=== PATIENT | female | born 1970 | race Caucasian/White ===

== ENCOUNTER 2023-08-20 17:22 | Observation (INO) | payer MEDICARE, SELFPAY ==
[2023-08-20] VITALS (27 sets, daily range): BP systolic 116–159; BP diastolic 78–124; PULSE 100–118; RESP 12–26; TEMP 36.5–36.7; O2SAT 93–98; BMI 37.8; BMI 41.1
--- NOTE | 2023-08-20 17:33 | ECG_ITS ---
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
--- NOTE | 2023-08-20 17:33 | XR_ITS ---
The [address] [address] Patient Name: NEY GUTHRIE MRN: [id number] date: 1970 Sex: F Assigned Patient Location: ER Current Patient Location: ER Accession/Order Number: [id number] Exam Date: 08/20/2023 18:18 Report Date: 08/20/2023 18:59 At the request of: STUART LEDEZMA Procedure: XR chest 1V EXAMINATION: XR chest 1V 08/20/2023 3:58 PM PST HISTORY: shortness of breath TECHNIQUE: Single frontal view of the chest acquired. COMPARISONS: Chest x-ray 06/09/2015 FINDINGS: Lines/tubes/other: None. Heart and mediastinum: The heart and the mediastinum are within normal limits for technique. Bones: No acute osseous abnormality. Lungs: The lungs are clear. There is no evidence of pneumonia or pulmonary edema. Pleura: There is no significant pleural effusion or pneumothorax. Other: None. XR/XR chest 1V IMPRESSION: No acute cardiopulmonary abnormality. Electronically authenticated by: KRISTEN ESTRELLA Date: 08/20/2023 18:59
--- NOTE | 2023-08-20 17:37 | ED_ITS ---
HPI - SOB/Dyspnea General Chief Complaint: Shortness of Breath/Dyspnea Stated Complaint: Shortness of breath Time Seen by Provider: 08/20/23 17:28 Source: patient Mode of arrival: walk-in Limitations: no limitations History of Present Illness HPI Narrative: Patient brought by family to our ED from [place] for evaluation after 1 month of worsening shortness of breath. Patient states that she contracted Covid around July 21 and got steroids taper and Paxlovid. She finished those and was no better . She has been using her home nebs - atrovent and albuterol - along with her maintenance inhaler. She said that she did not see her PCP or go to any other providers until today when she went to the ER at [place]. She waited in the waiting room and decided it was taking too long so she came to see us. Fever to 102F at home. No vomiting but appetite has been decreased. PMHx - hypothyroidism, COPD and high cholesterol. 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 Related Data Home Medications Medication Instructions Recorded Confirmed alprazolam 0.25 mg tablet 0.25 mg PO PRN 08/20/23 08/20/23 amitriptyline 50 mg tablet 50 mg PO PRN 08/20/23 08/20/23 ipratropium 0.5 mg-albuterol 3 mg 3 ml inhalation Q6H PRN shortness 08/20/23 08/20/23 (2.5 mg base)/3 mL nebulization of breath or wheezing soln levothyroxine 100 mcg tablet 100 mcg PO DAILY 08/20/23 08/20/23 pravastatin 20 mg tablet 20 mg PO DAILY 08/20/23 08/20/23 ropinirole 0.5 mg tablet 0.5 mg PO DAILY 08/20/23 08/20/23 Allergies Allergy/AdvReac Type Severity Reaction Status Date / Time No Known Drug Allergies Allergy Verified 08/20/23 17:26 [facility] Social History Smoking status: Current every day smoker Exam Narrative Exam Narrative: Nurses notes and vital signs reviewed and patient is not hypoxic. afebrile General: tachypneic. Skin: Warm, dry, no pallor noted. No rash. Head: Normocephalic, atraumatic. Eye: Pupils are equal, round and EOMI. No scleral icterus. Ears, Nose, Mouth, and Throat: Oral mucosa is moist Cardiovascular: Tachycardia. Respiratory: Accessory muscle use, tachypnea. Decreased air exchange. Expiratory wheezing and scattered rhonchi Musculoskeletal: normal ROM, no calf or popliteal tenderness, no lower extremity edema/swelling GI: Abdomen is soft, non-distended. Normal bowel sounds. No tenderness to palpation. No rebound, guarding, or rigidity noted. Neurological: A&O x4. No cranial nerve dysfunction observed. No truncal ataxia. Moves all extremities. Sensation intact. Psychiatric: Cooperative and interactive. Normal mood and affect. Constitutional Vital Signs, click to edit/add: Last Vital Signs Temp 97.7 F 08/20/23 17:26 Pulse 109 H 08/20/23 18:40 Resp 22 08/20/23 18:40 BP 120/90 08/20/23 18:30 Pulse Ox 96 08/20/23 18:40 O2 Del Method Room Air 08/20/23 17:26 Course Vital Signs Vital signs: Vital Signs Temperature 97.7 F 08/20/23 17:26 Pulse Rate 117 H 08/20/23 17:26 Respiratory Rate 26 H 08/20/23 17:26 Blood Pressure 116/82 08/20/23 17:26 Pulse Oximetry 96 08/20/23 17:26 Oxygen Delivery Method Room Air 08/20/23 17:26 Temperature 97.7 F 08/20/23 17:26 Pulse Rate 109 H 08/20/23 18:40 Respiratory Rate 22 08/20/23 18:40 Blood Pressure 120/90 08/20/23 18:30 Pulse Oximetry 96 08/20/23 18:40 Oxygen Delivery Method Room Air 08/20/23 17:26 MDM - SOB/Dyspnea MDM Narrative Medical decision making narrative: Patient was placed on quality assurance monitor final and EKG obtained. Blood drawn and sent for evaluation, including lactate, procalcitonin and blood cultures. Respiratory panel and portable CXR obtained. She was ordered to receive IV Solumedrol and an albuterol neb treatment - she had a duoneb at home around 330pm. CXR negative. WBC normal. Lactate elevated. Procalcitonin pending. CMP unremarkable. d dimer negative. She was given IV Levaquin and blood cultures are pending Plan is for patient to be admitted, medsurg, observation with telemetry. Signed out to Dr Pizarro to discuss with hospitalist. Lab Data Attestation: I reviewed the patient's lab results. Labs: Lab Results 08/20/23 Range/Units 17:58 WBC 10.3 (4.0-11.0) 10^3/uL RBC 4.52 (4.20-5.40) 10^6/uL Hgb 14.1 (12.0-16.0) g/dL Hct 43.6 (36.0-48.0) % MCV 96.5 (81.0-99.0) fL MCH 31.2 (26.7-34.0) pg MCHC 32.3 (29.9-35.2) g/dL RDW 14.5 (11.0-15.0) % Plt Count 245 (150-450) 10^3/uL MPV 10.3 (9.5-13.5) fL Neut % (Auto) 71.0 (43.0-75.0) % Lymph % (Auto) 19.4 L (20.5-60.0) % [place] % (Auto) 6.1 (1.7-12.0) % Eos % (Auto) 1.6 (0.9-7.0) % Baso % (Auto) 0.6 (0.2-2.0) % Neut # (Auto) 7.3 H (1.4-6.5) 10^3/uL Lymph # (Auto) 2.0 (1.2-3.8) 10^3/uL [place] # (Auto) 0.6 (0.3-0.8) 10^3/uL Eos # (Auto) 0.2 (0.0-0.7) 10^3/uL Baso # (Auto) 0.1 (0.0-0.1) 10^3/uL Abs Immat Gran (auto) 0.13 H (0.00-0.03) 10^3/uL Imm/Tot Granulo (auto) 1.3 H (0.0-0.5) % D-Dimer 0.32 (<=0.59) mg/L FEU Sodium 137 (136-145) mmol/L Potassium 3.8 (3.5-5.1) mmol/L Chloride 102 (98-107) mmol/L Carbon Dioxide 25.5 (21.0-32.0) mmol/L Anion Gap 13.3 BUN 13.0 (7.0-18.0) mg/dL Creatinine 0.93 (0.55-1.02) mg/dL Est GFR ( Amer) >60 (>=60) Est GFR (Non-Af Amer) >60 (>=60) BUN/Creatinine Ratio 14.0 Glucose 179 H (74-106) mg/dL Lactate 2.3 H* (0.4-2.0) mmol/L Calcium 8.9 (8.5-10.1) mg/dL Total Bilirubin 0.3 (0.2-1.0) mg/dL AST 15 (15-37) U/L ALT 49 (14-59) U/L Alkaline Phosphatase 88 (46-116) U/L Total Protein 7.4 (6.4-8.2) g/dL Albumin 3.7 (3.4-5.0) g/dL Globulin 3.7 g/dL Albumin/Globulin Ratio 1.0 Imaging Data Chest x-ray: Radiologist's impression: ITS Impressions Chest X-Ray 08/20/23 17:33 IMPRESSION: No acute cardiopulmonary abnormality. Electronically authenticated by: KRISTEN ESTRELLA Date: 08/20/2023 18:59 ECG Data Attestation: I personally reviewed and interpreted this ECG as follows: Interpretation: EKG interpretation: Emergency Department physician interpretation. Sinus tachycardia at 117bpm. Normal axis, normal intervals, non specific T wave changes, no ST segment elevation or depression. Discharge Plan Discharge Chief Complaint: Shortness of Breath/Dyspnea Clinical Impression: Acute infective exacerbation of chronic obstructive airway disease Patient Disposition: Admitted as Observation Time of Disposition Decision: 17:47
[2023-08-20] MEDS: ALBUTEROL SULFATE 2.5 MG/3 ML VIAL NEB IH (17:52)
[2023-08-20] MEDS: 0.9 % SODIUM CHLORIDE 1,000 ML 999 ML IV (17:59)
[2023-08-20] MEDS: METHYLPREDNISOLONE SOD SUCC PF 125 MG/2 ML VIAL IVP (18:00)
[2023-08-20 18:06] LABS: Adenovirus NOT DETECTED (NOT DETECTE); Bordetella parapertussis NOT DETECTED (NOT DETECTE); Coronavirus 229E NOT DETECTED (NOT DETECTE); Coronavirus HKU1 NOT DETECTED (NOT DETECTE); Coronavirus NL63 NOT DETECTED (NOT DETECTE); Coronavirus OC43 NOT DETECTED (NOT DETECTE); Human Metapneumovirus NOT DETECTED (NOT DETECTE); Human Rhinovirus/Enterovirus NOT DETECTED (NOT DETECTE); Influenza A NOT DETECTED (NOT DETECTE); Influenza B NOT DETECTED (NOT DETECTE); Mycoplasma pneumoniae NOT DETECTED (NOT DETECTE); Parainfluenza Virus 1 NOT DETECTED (NOT DETECTE); Parainfluenza Virus 2 NOT DETECTED (NOT DETECTE); Parainfluenza Virus 3 NOT DETECTED (NOT DETECTE); Parainfluenza Virus 4 NOT DETECTED (NOT DETECTE); Respiratory Syncytial Virus NOT DETECTED (NOT DETECTE)
[2023-08-20 18:14] LABS: Basophils Absolute Auto 0.1 10^3/uL (0.0-0.1); Basophils Percent Auto 0.6 % (0.2-2.0); Eosinophils Absolute Auto 0.2 10^3/uL (0.0-0.7); Eosinophils Percent Auto 1.6 % (0.9-7.0); Hematocrit 43.6 % (36.0-48.0); Hemoglobin 14.1 g/dL (12.0-16.0); Immature Granulocytes Abs Auto 0.13 10^3/uL (0.00-0.03); Immature Granulocytes Pct Auto 1.3 % (0.0-0.5); Lymphocytes Percent Auto 19.4 % (20.5-60.0); Mean Corpuscular HGB Conc 32.3 g/dL (29.9-35.2); Mean Corpuscular Hemoglobin 31.2 pg (26.7-34.0); Mean Corpuscular Volume 96.5 fL (81.0-99.0); Mean Platelet Volume 10.3 fL (9.5-13.5); Monocytes Absolute Auto 0.6 10^3/uL (0.3-0.8); Monocytes Percent Auto 6.1 % (1.7-12.0); Neutrophils Absolute Auto 7.3 10^3/uL (1.4-6.5); Platelet Count 245 10^3/uL (150-450); Red Blood Count 4.52 10^6/uL (4.20-5.40); Red Cell Distribution Width 14.5 % (11.0-15.0); White Blood Count 10.3 10^3/uL (4.0-11.0)
[2023-08-20 18:32] LABS: Lactate/Lactic Acid 2.3 mmol/L (0.4-2.0)
[2023-08-20 18:37] LABS: D Dimer 0.32 mg/L FEU (<=0.59)
[2023-08-20 18:39] LABS: Alanine Aminotransferase 49 U/L (14-59); Albumin Level 3.7 g/dL (3.4-5.0); Alkaline Phosphatase 88 U/L (46-116); Anion Gap 13.3; Aspartate Amino Transferase 15 U/L (15-37); Bilirubin Total 0.3 mg/dL (0.2-1.0); Calcium 8.9 mg/dL (8.5-10.1); Carbon Dioxide 25.5 mmol/L (21.0-32.0); Chloride 102 mmol/L (98-107); Estimated GFR (African America >60 (>=60); Estimated GFR (Non-African Ame >60 (>=60); Globulin 3.7 g/dL; Glucose 179 mg/dL (74-106); Potassium 3.8 mmol/L (3.5-5.1); Sodium 137 mmol/L (136-145); Total Protein 7.4 g/dL (6.4-8.2)
[2023-08-20 19:10] LABS: PROCALCITONIN <0.05 ng/mL (0.00-0.50)
[2023-08-20 19:36] LABS: SARS-CoV-2 DETECTED (NOT DETECTE)
[2023-08-20] MEDS: LEVOFLOXACIN IN DEXTROSE 5 % 750 MG/150 ML IV.SOLN 100 MG IV (19:41)
[2023-08-20] MEDS: ALPRAZOLAM 0.5 MG TABLET PO (19:59)
[2023-08-20] MEDS: NICOTINE 14 MG PATCH.TD24 TD (20:30)
[2023-08-20] MEDS: 0.9 % SODIUM CHLORIDE 1,000 ML 100 ML IV (21:35)
[2023-08-20] MEDS: ENOXAPARIN SODIUM 40 MG/0.4 ML SYRINGE SUBQ (21:35)
[2023-08-20 21:54] LABS: Lactate/Lactic Acid 3.4 mmol/L (0.4-2.0)
[2023-08-20 22:39] LABS: Bilirubin Urine NEGATIVE (NEGATIVE); Blood Urine NEGATIVE (NEGATIVE); Clarity Urine CLEAR (CLEAR); Color Urine LT. YELLOW (YELLOW); Glucose Urine UA 250 mg/dL (NEGATIVE); Ketones Urine NEGATIVE (NEGATIVE); Leukocyte Esterase Urine NEGATIVE (NEGATIVE); Nitrite Urine NEGATIVE (NEGATIVE); Protein Urine NEGATIVE (NEG/TRACE); Urobilinogen Urine 0.2 EU/dL (0.2-1.0); pH Urine 5.5 (5.0-9.0)
[2023-08-20 22:46] LABS: Urine Microscopic Indicated NO
[2023-08-20] MEDS: IPRATROPIUM/ALBUTEROL SULFATE 3 ML AMPUL.NEB IH (23:59)
[2023-08-21] VITALS (11 sets, daily range): BP systolic 147; BP diastolic 83; PULSE 96–106; RESP 16–18; TEMP 36.6; O2SAT 93–95
[2023-08-21 01:03] LABS: Lactate/Lactic Acid 3.4 mmol/L (0.4-2.0)
[2023-08-21 04:24] LABS: Basophils Percent Auto 0.1 % (0.2-2.0); Hematocrit 39.6 % (36.0-48.0); Hemoglobin 12.5 g/dL (12.0-16.0); Immature Granulocytes Abs Auto 0.12 10^3/uL (0.00-0.03); Immature Granulocytes Pct Auto 1.5 % (0.0-0.5); Lymphocytes Absolute Auto 0.6 10^3/uL (1.2-3.8); Lymphocytes Percent Auto 7.5 % (20.5-60.0); Mean Corpuscular HGB Conc 31.6 g/dL (29.9-35.2); Mean Corpuscular Hemoglobin 30.9 pg (26.7-34.0); Mean Corpuscular Volume 97.8 fL (81.0-99.0); Mean Platelet Volume 10.8 fL (9.5-13.5); Monocytes Absolute Auto 0.1 10^3/uL (0.3-0.8); Monocytes Percent Auto 1.3 % (1.7-12.0); Neutrophils Absolute Auto 7.1 10^3/uL (1.4-6.5); Neutrophils Percent Auto 89.6 % (43.0-75.0); Platelet Count 211 10^3/uL (150-450); Red Blood Count 4.05 10^6/uL (4.20-5.40); Red Cell Distribution Width 14.4 % (11.0-15.0); White Blood Count 7.9 10^3/uL (4.0-11.0)
[2023-08-21 05:05] LABS: Alanine Aminotransferase 46 U/L (14-59); Albumin Level 3.3 g/dL (3.4-5.0); Alkaline Phosphatase 74 U/L (46-116); Anion Gap 14.6; Aspartate Amino Transferase 16 U/L (15-37); BUN Creatinine Ratio 9.5; Bilirubin Total 0.3 mg/dL (0.2-1.0); Calcium 8.5 mg/dL (8.5-10.1); Carbon Dioxide 23.7 mmol/L (21.0-32.0); Chloride 105 mmol/L (98-107); Estimated GFR (African America >60 (>=60); Estimated GFR (Non-African Ame >60 (>=60); Globulin 3.4 g/dL; Glucose 227 mg/dL (74-106); Potassium 4.3 mmol/L (3.5-5.1); Sodium 139 mmol/L (136-145); Total Protein 6.7 g/dL (6.4-8.2)
[2023-08-21] MEDS: LEVOTHYROXINE SODIUM 100 MCG TABLET PO (05:15)
[2023-08-21 06:19] LABS: Lactate/Lactic Acid 3.4 mmol/L (0.4-2.0)
[2023-08-21 07:34] LABS: Lactate/Lactic Acid 3.4 mmol/L (0.4-2.0)
[2023-08-21] MEDS: ACETAMINOPHEN 325 MG TABLET 650 MG PO (08:14)
[2023-08-21] MEDS: 0.9 % SODIUM CHLORIDE 1,000 ML 100 ML IV (08:15)
[2023-08-21] MEDS: ROPINIROLE HCL 0.25 MG TABLET 0.5 MG PO (08:15)
[2023-08-21] MEDS: METHYLPREDNISOLONE SOD SUCC PF 40 MG/ML VIAL IVP (09:49)
[2023-08-21] MEDS: GUAIFENESIN 600 MG TAB.ER.12H PO (09:49)
[2023-08-21 10:53] LABS: Estimated Average Glucose 140 mg/dL; Glycohemoglobin A1C 6.5 % (4.5-6.2)
[2023-08-21] MEDS: IPRATROPIUM/ALBUTEROL SULFATE 3 ML AMPUL.NEB IH (11:49)
[2023-08-21] MEDS: BUDESONIDE 0.5 MG/2 ML AMPULE NEB IH (11:49)
--- NOTE | 2023-08-21 12:12 | P.HP_ITS ---
<Statement entered by Terese Bustos, DO - 08/21/23 15:03> This documentation has been reviewed and approved. This documentation has been reviewed and approved. I have also seen and examined patient at the time of discharge agree with the above. H&P: HPI History of Present Illness Chief complaint: Shortness of breath, COPD Exacerbation Narrative: 08/21/23 0935 This is a 52-year-old female patient with a past medical history significant for COPD without chronic respiratory failure, recent COVID-19 infection (06/20/2023), tobacco dependency, hypothyroidism, hyperlipidemia, and anxiety; who presented to the ED yesterday evening complaining of persistent shortness of breath. The patient reports onset of COVID symptoms around 20 June and tested positive at that time. Her initial symptoms were fever and shortness of breath. She was treated as an outpatient with Paxlovid and a steroid burst. She reports that her fevers resolved but she continued to feel short of breath with activity. Yesterday she again developed a fever up to 102 at home and she was a little more short of breath and presented to the ED for further evaluation. Workup in the ED was mostly unremarkable except for hyperglycemia and persistent lactic acidosis refractory to IV fluids. Chest x-ray revealed no acute disease, procalcitonin was negative, but a repeat COVID test was [place]. [address], revealed sinus tachycardia (heart rate 117) but was otherwise unremarkable. The patient was stable on room air but continued to complain of shortness of breath and was admitted in observation to the hospitalist service overnight. At the time of my exam the patient reports improved symptoms after receiving regular breathing treatments and high-dose IVP steroids. With the presence of fever yesterday and a positive COVID test we suspect rebound COVID after taking Paxlovid last month. We will thus defer any further paxlovid dosing. As the pt reports that her SOB and wheezing have improved and she remains stable on RA, we will discharge her home later today. Nursing has assessed for possible hypoxia with walking and this was negative. She is being discharged with a prescription for Levaquin for possible secondary bacterial pneumonitis and/or COPD exacerbation associated bronchitis. We have also prescribed a long steroid taper. The pt already has a nebulizer and appropriate prescriptions for breathing treatments. 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 Complete tobacco cessation was advised. Review of Systems ROS Status of ROS 10 or more systems reviewed and unremark able except as noted in history and below [facility] Medical History (Updated 08/21/23 @ 12:35 by Akosua Otero NP) Hypothyroidism ?E03.9 - Hypothyroidism, unspecified (ICD-10) Hyperlipidemia ?E78.5 - Hyperlipidemia, unspecified (ICD-10) Tobacco dependence ?F17.200 - Nicotine dependence, unspecified, uncomplicated (ICD-10) COPD (chronic obstructive pulmonary disease) ?J44.9 - Chronic obstructive pulmonary disease, unspecified (ICD-10) Surgical History (Updated 08/20/23 @ 20:35 by Eleonora Camilo RN) H/O hand surgery ?Z98.890 - Other specified postprocedural states (ICD-10) History of hysterectomy ?Z90.710 - Acquired absence of both cervix and uterus (ICD-10) History of lumpectomy of left breast ?Z98.890 - Other specified postprocedural states (ICD-10) Family History (Updated 08/20/23 @ 20:37 by Eleonora Camilo RN) Brother Blood clot in vein Father Parkinson disease Family history of stroke Family history of myocardial infarction Mother Family history of CHF (congestive heart failure) Other Family history of COPD (chronic obstructive pulmonary disease) Family history of diabetes mellitus Family history of hypertension Social History (Updated 08/20/23 @ 20:39 by Eleonora Camilo, DORENE) Within the past year, how often did you have a drink containing alcohol: monthly or less Within the past year, how many standard drinks containing alcohol did you have on a typical day: 1 or 2 Within the past year, how often did you have six or more drinks on one occasion: never Total score: 0 Score interpretation: A score less than 3 is consistent with normal alcohol consumption. Smoking status: Current every day smoker Non-prescribed substance use: cannabis (any form) Highest level of school completed/degree received: high school graduate Are you now , , , , never or living with a partner: In a typical week, how many times do you talk on the telephone with family, friends, or neighbors: 3 or more times per week How often do you get together with friends or relatives: 3 or more times per week How often do you attend protestant or catholic services: never Little interest or pleasure in doing things: not at all Feeling down, depressed, or hopeless: not at all Do you think of yourself as: straight/heterosexual Gender Identity: female Meds Home Medications and Allergies Home Medications Medication Instructions Recorded Confirmed Type alprazolam 0.25 mg tablet 0.25 mg PO PRN 08/20/23 08/20/23 History amitriptyline 50 mg tablet 50 mg PO .QHS PRN sleep 08/20/23 08/21/23 History ipratropium 0.5 mg-albuterol 3 mg 3 ml inhalation Q6H PRN shortness 08/20/23 08/20/23 History (2.5 mg base)/3 mL nebulization of breath or wheezing soln levothyroxine 100 mcg tablet 100 mcg PO DAILY 08/20/23 08/20/23 History pravastatin 20 mg tablet 20 mg PO DAILY 08/20/23 08/20/23 History ropinirole 0.5 mg tablet 0.5 mg PO QPM 08/20/23 08/21/23 History levofloxacin 750 mg tablet 750 mg PO DAILY 7 days #7 tabs 08/21/23 Rx nicotine 14 mg/24 hr daily 1 patch transdermal DAILY #14 ea 08/21/23 Rx transdermal patch (Nicoderm CQ) prednisone 10 mg tablet 10 mg PO .As Directed 14 days #42 08/21/23 Rx tabs Allergies Allergy/AdvReac Type Severity Reaction Status Date / Time No Known Drug Allergies Allergy Verified 08/20/23 17:26 Exam Constitutional Vital Signs, click to edit/add: Last Vital Signs Temp 97.8 F 08/21/23 04:31 Pulse 106 H 08/21/23 12:00 Resp 16 08/21/23 04:31 BP 147/83 H 08/21/23 04:31 Pulse Ox 94 L 08/21/23 10:00 O2 Del Method Room Air 08/21/23 04:31 Common normals: no apparent distress, oriented x3, alert and well nourished General appearance: cooperative Orientation/consciousness: Yes awake HENMT Common normals: normocephalic, head/scalp atraumatic, hearing grossly normal bilaterally, external nose normal and moist oral mucous membranes Eye Common normals: PERRL, EOMs intact bilaterally, conjunctivae normal and no scleral icterus Alignment: alignment normal Eyelid: eyelids normal Neck & C-Spine Common normals: full ROM, supple and no JVD Chest Common normals: inspection of chest normal Chest: symmetrical chest wall rise Respiratory Common normals: normal respiratory effort, no retractions and no use of accessory muscles Auscultation: wheezes (Faint, scattered EE) Cardio Common normals: no JVD, regular rate (Borderline tachycardia), regular rhythm, S1 normal heart sound, S2 normal heart sound, no gallops, no clicks, no murmurs, no rub and peripheral pulses 2+ throughout GI Common normals: Normal to inspection, nondistended, normoactive bowel sounds present, soft to palpation, non-tender, no hepatosplenomegaly, no masses and no bruits Bladder/kidney exam: bladder normal to palpation Bimanual exam- vagina & uterus: bladder normal to palpation Back & Pelvis Common normals: thoracic and lumbar spine normal to inspection Extremity Common normals: normal capillary refill and no pedal edema Neuro [place] Coma Scale: GCS not evaluated Common normals: CN's II-XII intact bilaterally, moves all extremities, no focal motor deficits and no sensory deficits noted Speech: speech normal Motor exam: strength 5/5 throughout Psych Common normals: mental status grossly normal, thought process normal, affect normal and activity/motor behavior normal Results Labs Labs: Short CBC 08/20/23 08/21/23 Range/Units 17:58 03:35 WBC 10.3 7.9 (4.0-11.0) 10^3/uL Hgb 14.1 12.5 (12.0-16.0) g/dL Hct 43.6 39.6 (36.0-48.0) % Plt Count 245 211 (150-450) 10^3/uL BMP 08/20/23 08/21/23 17:58 03:35 Sodium 137 139 Potassium 3.8 4.3 Chloride 102 105 Carbon Dioxide 25.5 23.7 BUN 13.0 8.0 Creatinine 0.93 0.84 Glucose 179 H 227 H Calcium 8.9 8.5 Liver Function 08/20/23 08/21/23 Range/Units 17:58 03:35 Total Bilirubin 0.3 0.3 (0.2-1.0) mg/dL AST 15 16 (15-37) U/L ALT 49 46 (14-59) U/L Alkaline Phosphatase 88 74 (46-116) U/L Albumin 3.7 3.3 L (3.4-5.0) g/dL Urine 08/20/23 Range/Units 22:27 Urine Color Lt. yellow (YELLOW) Urine Clarity Clear (CLEAR) Urine pH 5.5 (5.0-9.0) Ur Specific [place] 1.010 (1.005-1.025) Urine Protein Negative (NEG/TRACE) mg/dL Urine Glucose (UA) 250 A (NEGATIVE) mg/dL Pulse Oximetry Attestation: I have reviewed the pertinent pulse oximetry results. ECG Interpretation: Sinus tachycardia Nonspecific T wave abnormality Low QRS voltage in chest leads Abnormal rhythm ECG No previous ECG available for comparison Imaging Chest x-ray: Attestation: I have reviewed the pertinent imaging results. Radiologist's impression: IMPRESSION: No acute cardiopulmonary abnormality. 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
--- NOTE | 2023-08-21 13:42 | CM.NOTE ---
Rounds made with Dr. Bustos, discussed with pt discharge to home today. No discharge needs identified.
--- NOTE | 2023-08-22 15:27 | CM.NOTE ---
First attempt at Discharge phone call. No answer.
--- NOTE | 2023-09-01 15:02 | CM.DCFOLLOWU ---
2nd attempt discharge follow up call made by Nikko Mirza on 09/01/23, no answer
== END 2023-08-21 14:20 | disposition home or self-care (01) ==
LOC: ER 19:33 → MS 20:28
PROVIDERS: Emergency Medicine; Nurse Practitioner Acute Care; Admitting Provider Family Medicine; Emergency Provider Internal Medicine; PCP Family Medicine; Visit Provider Nurse Practitioner
DX: J44.1 Chronic obstructive pulmonary disease with (acute) exacerbation (principal); U07.1 COVID-19; E03.9 Hypothyroidism, unspecified; F17.210 Nicotine dependence, cigarettes, uncomplicated; E78.5 Hyperlipidemia, unspecified; F41.9 Anxiety disorder, unspecified; Z98.890 Other specified postprocedural states; Z90.710 Acquired absence of both cervix and uterus; F12.90 Cannabis use, unspecified, uncomplicated; Z79.899 Other long term (current) drug therapy; Z79.890 Hormone replacement therapy
CPT/HCPCS: 0202U; 36415; 71045; 80053; 81003; 83036; 83605; 84145; 85025; 85378; 87040; 93005; 94640; 96365; 96372; 96375; 96376; 99285; G0378; J1650; J2920; J2930